=== PATIENT | male | born 1955 | race Caucasian/White ===

== ENCOUNTER 2022-04-16 18:30 | Emergency (ER) | payer MEDICARE ==
[~2022-04-16 18:30] MED LIST: ASPIRIN EC81 MG PO; CAPOZIDE 25/15 T1 EA PO; COLCHICINE0.6 M1 PO; HYDRALAZINE HCL25 MG PO; INDOCIN 50 MG C50 MG PO; LIPITOR TAB 2020 MG PO; LISINOPRIL40 MG PO; LOPRESSOR100 MG PO; LOPRESSOR50 MG PO; METFORMIN HCL1000 MG PO; NORVASC 5 MG TAB5 MG PO; PRAVACHOL40 MG PO; ZANTAC150 MG PO; ZYLOPRIM 100 M100 MG PO
[2022-04-16 19:23] LABS: HEMOGLOBIN 16.7 gm/dl (14.0-17.5); RED BLOOD COUNT 5.54 M/UL (4.20-5.50); WHITE BLOOD COUNT 9.1 K/UL (4.5-11.0)
[2022-04-16 19:36] LABS: BUN/CREATININE RATIO 13 (0-10)
== END 2022-04-16 20:50 | disposition short-term general hospital (02) ==
LOC: ER1 18:30
PROVIDERS: Family Medicine
DX: I63.512 Cerebral infarction due to unspecified occlusion or stenosis of left middle cerebral artery (principal); Z20.822 Contact with and (suspected) exposure to COVID-19; Z95.1 Presence of aortocoronary bypass graft
CPT/HCPCS: 70450; 71045; 80053; 80307; 82009; 82550; 82553; 83605; 83690; 83735; 84439; 84443; 84484; 85025; 85610; 93005; 99285; G0480; U0002

== ENCOUNTER → 2022-06-08 | Outpatient (CLI) | payer MEDICARE | LOC: HEART 5 06-05 07:45 | DX: I48.91 Unspecified atrial fibrillation (principal); I25.9 Chronic ischemic heart disease, unspecified; Z95.1 Presence of aortocoronary bypass graft | CPT/HCPCS: 78452; A9502; J2785 ==